=== PATIENT | male | born 1980 | race African-American/Black ===

== ENCOUNTER 2024-01-21 23:24 | Emergency (ER) | payer MEDICAID ==
[2024-01-22] MEDS: RACEPINEPHRINE 2.25% 0.5ML NEB VIAL HHN ONE (00:15)
[2024-01-22 00:18] LABS: BASOPHILS % 0.7 % (0.0-2.0); DIFFERENTIAL COMMENT 0; EOSINOPHILS % 0.9 % (0.0-5.0); HEMATOCRIT. 41.2 % (42.0-52.0); HEMOGLOBIN. 14.3 g/dL (14.0-18.0); LYMPHOCYTES % 25.4 % (20.0-50.0); MEAN CORPUSCULAR HEMOGLOBIN 36.5 pg (28.0-32.0); MEAN CORPUSCULAR HGB CONC 34.8 g/dL (31.0-37.0); MEAN PLATELET VOLUME 7.6 fl (7.4-10.4); MONOCYTES % 6.7 % (2.0-8.0); NEUTROPHILS % 66.3 % (40.0-76.0); PLATELET 341 x1000/uL (130-400); RED BLOOD CELL COUNT 3.93 mill/uL (4.7-6.1); RED CELL DISTRIBUTION WIDTH 11.9 % (11.6-14.6); WHITE BLOOD COUNT 10.8 x1000/uL (4.5-11.0)
[2024-01-22 00:27] LABS: CHLORIDE 106 mEq/L (98-107); POTASSIUM 3.7 mEq/L (3.5-5.1); SODIUM 138 mEq/L (136-145)
[2024-01-22 00:28] LABS: CALCIUM 9.8 mg/dL (8.7-10.4); CARBON DIOXIDE 24 mEq/L (21-32)
[2024-01-22] MEDS: METHYLPREDNISOLONE SOD SUCC 125MG/2ML (ACT-O-VIAL) IV ONE (00:32)
[2024-01-22] MEDS: DIPHENHYDRAMINE 50MG/ML VIAL IV ONE (00:32)
[2024-01-22] MEDS: MAGNESIUM/ALUMINUM HYDROXIDE/SIMETHICONE 30ML UDC PO ONE (00:32)
[2024-01-22] MEDS: ACETAMINOPHEN 325MG TABLET PO ONE (00:32)
[2024-01-22 00:33] LABS: CREATININE 0.7 mg/dL (0.6-1.3); ETHANOL BLOOD 39 mg/dL (<10); GLUCOSE 67 mg/dL (70-105); UREA NITROGEN BLOOD 15 mg/dL (9-23)
[2024-01-22 00:35] LABS: ALANINE AMINOTRANSFERASE 17 IU/L (10-49); ALBUMIN 4.5 g/dL (3.2-4.8); ASPARTATE AMINOTRANSFERASE 24 IU/L (<34); BILIRUBIN TOTAL 0.7 mg/dL (0.1-1.0); PROTEIN TOTAL 7.4 g/dL (6.0-8.3)
[2024-01-22] MEDS: FAMOTIDINE 20MG/2ML VIAL IV ONE (00:35)
[2024-01-22] MEDS: SODIUM CHLORIDE 0.9% 1,000 ML IV SCH (00:35)
[2024-01-22 00:59] VITALS: PULSE 88; RESP 20; O2SAT 100
[2024-01-22] MEDS: KETOROLAC 15MG/ML VIAL IV ONE (01:44)
[2024-01-22] MEDS ORDERED: DIPH25TA62 MT (05:04)
[2024-01-22] MEDS ORDERED: ONDA4TAB50 MT (05:04)
[2024-01-22] MEDS ORDERED: EPIN0.3P3 IM (05:04)
[2024-01-22] MEDS ORDERED: FAMO-135 MT (05:04)
[2024-01-22] MEDS ORDERED: P20 MT (05:04)
[2024-01-22 05:28] VITALS: BP 120/63; PULSE 86; RESP 15; TEMP 98.4
== END 2024-01-22 05:35 | disposition home or self-care (01) ==
LOC: ER 23:24
DX: T78.40XA Allergy, unspecified, initial encounter (principal); J02.9 Acute pharyngitis, unspecified; R11.2 Nausea with vomiting, unspecified; F17.200 Nicotine dependence, unspecified, uncomplicated; Y92.89 Other specified places as the place of occurrence of the external cause
CPT/HCPCS: 99285; 80053; 80320; 83690; 85025; 36415; 71045; 96361; 96374; 96375; J1200; J3490; J1885; J2930; G0480